=== PATIENT | male | born 1950 | race Caucasian/White ===

== ENCOUNTER → 2019-05-17 | Day surgery (SDC) | payer MEDICARE, BC ==
[2019-05-12 17:13] LABS: BASOPHILS # (AUTO) 0.1 (0.0-0.1); BASOPHILS % 1.3 % (0.0-1.0); EOSINOPHILS # (AUTO) 0.2 (0.0-0.4); EOSINOPHILS % 2.8 % (0.0-6.0); HEMATOCRIT 41.3 % (38.2-49.6); HEMOGLOBIN 13.7 g/dL (14.0-18.0); LYMPHOCYTES # (AUTO) 3.1 (1.0-3.2); LYMPHOCYTES % 36.3 % (18.0-39.1); MEAN CORPUSCULAR HEMOGLOBIN 30.7 pg (28-32); MEAN CORPUSCULAR HGB CONC 33.2 g/dL (31-35); MEAN CORPUSCULAR VOLUME 92.6 fL (81-99); MONOCYTES # (AUTO) 0.8 (0.2-0.8); MONOCYTES % 9.7 % (4.4-11.3); NEUTROPHILS # (AUTO) 4.2 (2.1-6.9); NEUTROPHILS % 49.7 % (38.7-80.0); PLATELET COUNT 313 x10e3/uL (140-360); RED BLOOD COUNT 4.46 x10e6/uL (4.3-5.7); RED CELL DISTRIBUTION WIDTH 13.4 % (11.7-14.4)
[~2019-05-17] MED LIST: BENICAR HCT 401 EAC1 PO; CEREFOLIN TABL1 EACH PO; CO Q-10200 MG PO; COLLAGEN PO; CRESTOR10 MG PO; FENTANYL CITRATE/PF 100MCG/2 ML INJ ONE; FISH OIL 1,2001 EAC1 PO; GARLIC1000 MG PO; GLUCOSAMINE CH1 EAC2 PO; LIDOCAINE HCL 2% LOCAL INJ 5 ML SDV VIAL INJ ONE; METFORMIN HCL500 MG PO; MULTIVITAMINS1 EAC7 PO; PROPOFOL IV EMULSION 10 MG/ML 20 ML VIAL ONE
--- OUTSIDE RECORDS SUMMARY | 2019-05-17 06:25 | XMS REPORT | Summary of Care ---
Author Author [facility] - Health Organization [facility] - Health Address Unknown Phone Unavailable Care Team Providers Care Board Attendant Name Role Phone Elliot Kilgore MD PCP Reason for Visit * Reason Comments Refill Request Encounter Details Care Team Description Date Type Department Elliot Kilgore MD [address] [place] [address] Refill Request 03/26/2019 Refill [facility], [facility] [address] [facility] 4th [place] [address] Allergies Comments Active Allergy Reactions Severity Noted Date House Dust Cough Medium 07/11/1965 documented as of this encounter (statuses as of 03/30/2019) Medications End Date Status Medication Sig Dispensed Refills Start Date Active omeprazole 20 mg 20 mg. 0 capsuleIndications: takes 8 20mg every other day Active GARLIC ORAL Take by 0 mouth daily. Active omega 1-pwb-uby-fish oil Take by 0 1,600-500-800 mg/5 mL mouth daily. Liqd Active Multivitamins with Take by 0 Fluoride (MULTI-VITAMIN mouth daily. ORAL) Active gluc/chondr-msm Take by 0 7/C/candida/boron mouth daily. (GLUCOSAMINE-CHONDR, BOSWELLIA, ORAL) Active COLLAGEN MISC daily. 0 Active CoQ10, Ubiquinol, 200 mg Take by 0 capsuleIndications: takes mouth daily. 400mg every other day Active TURMERIC ORAL Take by 0 mouth daily. Active ROSUVASTATIN 10 mg tablet TAKE 1 TABLET 90 tablet 0 BY MOUTH 9 DAILY Active tiZANidine 4 mg tablet Take 4 mg by 0 mouth every 8 (eight) hours as needed. Active MULTIVITAMIN ORAL Take 1 tablet 0 by mouth daily. Active metFORMIN 500 mg Take 1 tablet 180 tablet 1 04/05/201 tabletIndications: by mouth 2 9 Pre-diabetes (two) times daily with meals. Active olmesartan-hydrochlorothi Take 1 tablet 30 tablet 2 azide 40-25 mg per by mouth 9 tabletIndications: daily. Hypertensive heart disease without heart failure Active Lmefol Take 1 tablet 0 Cb-igoxdx-lkK60-algal 6 by mouth mg-600 mg- 2 mg-90.314 mg every other Tab day. 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 07/19/2018 Calcific tendinitis of shoulder 07/19/2018 Carpal tunnel syndrome 07/19/2018 Cervical radiculopathy 07/19/2018 Cervical spondylosis 07/19/2018 Osteoarthritis of shoulder region 07/19/2018 Disorder of bursae of shoulder region 07/19/2018 Enthesopathy of hip region 07/19/2018 Full thickness rotator cuff tear 07/19/2018 Lumbar radiculopathy 07/19/2018 Neck pain 07/19/2018 Trochanteric bursitis 07/19/2018 Hypertensive heart disease without heart failure 07/19/2018 Mixed hyperlipidemia 07/19/2018 documented as of this encounter (statuses as of 03/30/2019) Immunizations Name Administration Dates Next Due Pneumococcal 13 07/11/2017 Conjugate, PCV13 (Prevnar 13) Pneumococcal 04/16/2011 Polysaccharide, PPSV23 (PNEUMOVAX) Tdap 04/16/2011 Zoster(Zostavax)(Shingles 01/09/2012 ) documented as of this encounter Social History Date Tobacco Use Types Packs/Day Years Used Former Smoker Smokeless Tobacco: Never Used Comments: quit 1985 Drinks/Week oz/Week Comments Alcohol Use occaisonally Yes Sex Assigned at Date Recorded Not on file Industry Job Start Date Occupation Not on file Not on file Not on file Travel End Travel History Travel Start No recent travel history available. documented as of this encounter Last Filed Vital Signs Not on filedocumented in this encounter Plan of Treatment Care Team Description Date Type Specialty Harlan Cardoso MD [address] [place] [phone] 03/30/2019 Office Visit Neurology Health Maintenance Due Date Last Done Comments HEPATITIS C (HCV) SCREEN 1950 LUNG CANCER SCREEN: 2003 Recommended for age 55-80 with 30 + pack year history Zoster Recombinant 03/05/2012 01/09/2012 Vaccine (SHINGRIX) (2 of 3) Medicare Wellness Visit 2013 PNEUMOCOCCAL VACCINES 65+ 07/11/2018 07/11/2017, 04/16/2011 (2 of 2 - PPSV23) INFLUENZA VACCINE (#1) 2019 06/20/2018 DTaP,Tdap,and Td Vaccines 04/16/2021 04/16/2011 (2 - Td) COLONOSCOPY 03/11/2028 03/11/2018 documented as of this encounter Results Not on filedocumented in this encounter Insurance Type Payer Benefit Subscriber ID Effective Phone Address Plan / Dates Group Medicare MEDICARE MEDICARE xxxxxxxxxxx 2013- [phone] [address] Present [id number] [place] [address] Medicare Supplement [place] BCBS [id number] 2017-P [phone] [address] resent [id number] [place] [address] documented as of this encounter
--- OUTSIDE RECORDS SUMMARY | 2019-05-17 06:25 | XMS REPORT ---
Author Author [facility] Address Unknown Phone Unavailable Care Team Providers Care Transfer Agent Name Role Phone Unavailable Unavailable Problems This patient has no known problems. Allergies, Adverse Reactions, Alerts This patient has no known allergies or adverse reactions. Medications This patient has no known medications. Results Test Description Test Time Test Comments Text Results Atomic Results Result Comments SURGICAL SPECIMENS 2018-03-14 17:19:00 RUN DATE: 03/14/18 [facility] *LIVE* PAGE 1 RUN TIME: 1719 Specimen Inquiry RUN USER: INTERFACE PATIENT: JYA CONTRERAS LOC: [facility] U #: [id number] AGE/SX: 67/M ROOM: RE03/11/18REG DR: Cesar Zamarripa MD : 46 BED: DIS: STATUS: DEP [facility] TLOC: SPEC #: [id number] RECD: 03/11/18 STATUS: SERGIO GRECO #: [id number] AKSHAT: 03/11/[address]: Cesar Zamarripa MD ENTERED: 03/13/18 SP TYPE: SURG SPEC OTHR DR: Lisa Barrera MD ORDERED: GM LEVEL 4 CODES: [id number] - ESOPHAGUS, NOS [id number] - COLON, NOS COPIES TO: Cesar Zamarripa MD [address] [place] [address] Lisa Barrera MD [address] [place], [place] [address] PROCEDURES: GM LEVEL 4 (Incomplete) TISSUES: 1. ESOPHAGUS, NOS - Esophagus, GE junction, bx. 2. COLON, NOS - Colon, transverse, bx. 3. COLON, NOS - Colon, descending, bx. FINAL DIAGNOSIS Esophagus, GE junction, bx.: Acanthosis; chronic inflammation, changes consistent with reflux esophagitis. Colon, transverse, bx.: Mild chronic colitis. Colon, descending, bx.: No atypical cellular features. GROSS AND MICROSCOPIC GROSS EXAMINATION: Received is/are the specimen/s designated with the appropriate dimensions and block designation: 1. Esophagus, GE junction, bx.: 2 segments of pink-de oliveira tissue, measuring up to 0.4 cm. in greatest dimension each (A). 2. Colon, transverse, bx.: 4 segments of pink-de oliveira tissue, measuring up to 0.3 cm. in greatest dimension each (B). 3. Colon, descending, bx.: 2 segments of pink-de oliveira tissue, measuring up to CONTINUED ON NEXT PAGE RUN DATE: 03/14/18 [facility] *LIVE* PAGE 2 RUN TIME: 1719 Specimen Inquiry RUN USER: INTERFACE ---SPEC #: [id number] PATIENT: JAY CONTRERAS Chang #[id number] (Continued) GROSS AND MICROSCOPIC (Continued) 0.3 cm. in greatest dimension each (C). MICROSCOPIC EXAMINATION: Sections of the "Esophagus, GE junction, bx." reveal changes of acanthosis and chronic inflammation. These changes are consistent with reflux esophagitis. The Alcian blue/PAS stain does not show specialized intestinal metaplasia. No definite evidence of malignancy is identified. (When special stains have been reviewed, the appropriate positive/negative controls have been reviewed and are appropriately positive/negative). Sections of the "Colon, transverse, bx." reveal changes of mild chronic colitis. A mild chronic inflammatory infiltrate is seen in a slightly expanded lamina propria. No crypt arch itectural distortion is seen. No definite evidence of "microscopic colitis", inflammatory bowel disease or malignancy is identified. Sections of the "Colon, descending, bx." reveal changes of no atypical cellular features. POST-OP DIAGNOSIS EGD-distal esophagitis, diverticulosis PRE-OP DIAGNOSIS GERD, melena Signed SIGNATURE ON FILE Hawa Ortiz MD 03/14/18 1719 END OF REPORT
--- OUTSIDE RECORDS SUMMARY | 2019-05-17 06:25 | XMS REPORT | Summary of Care ---
Author Author [facility] - Health Organization [facility] - Health Address Unknown Phone Unavailable Care Team Providers Care Ordnance Artificer Helper Name Role Phone Elliot Kilgore MD PCP Reason for Visit * Reason Comments Refill Request Encounter Details Care Team Description Date Type Department Elliot Kilgore MD [address] [place] [address] Refill Request 03/25/2019 Telephone [facility] Adult [facility], [facility] [address] [facility] 4th [place] [address] Allergies Comments Active Allergy Reactions Severity Noted Date House Dust Cough Medium 07/11/1965 documented as of this encounter (statuses as of 03/25/2019) Medications End Date Status Medication Sig Dispensed Refills Start Date Active omeprazole 20 mg 20 mg. 0 capsuleIndications: takes 8 20mg every other day Active GARLIC ORAL Take by 0 mouth daily. Active omega 1-wub-udf-fish oil Take by 0 1,600-500-800 mg/5 mL [...] mg Take 1 tablet 180 tablet 1 tabletIndications: by mouth 2 9 Pre-diabetes (two) times daily with meals. Active olmesartan-hydrochlorothi Take 1 tablet 30 tablet 2 azide 40-25 mg per by mouth 9 tabletIndications: daily. Hypertensive heart disease without heart failure Active Lmefol Take 1 tablet 0 Lb-kvfxhq-dfM66-algal 6 by mouth mg-600 mg- 2 mg-90.314 mg every other Tab day. documented as of this encounter (statuses as of 03/25/2019) Active Problems Problem Noted Date Deficiency of [...] as of this encounter (statuses as of 03/25/2019) Immunizations Name Administration Dates Next Due Pneumococcal [...] Description Date Type Specialty Harlan Cardoso MD [address] [place] [phone] 03/30/2019 Office Visit Neurology Health Maintenance [...] Results Not on filedocumented in this encounter Visit Diagnoses Diagnosis Mixed hyperlipidemia - Primary documented in this encounter Insurance Type Payer Benefit Subscriber ID Effective Phone Address Plan / Dates Group Medicare MEDICARE MEDICARE xxxxxxxxxxx 2013- [phone] [address] Present [id number] [place] [address] Medicare Supplement [employer] [place] BCBS [id number] 2017-P [phone] [address] [facility] resent [id number] [place] [address] documented as of this encounter
--- OUTSIDE RECORDS SUMMARY | 2019-05-17 06:25 | XMS REPORT | Summary of Care ---
Author Author [facility] - Health Organization [facility] - Health Address Unknown Phone Unavailable Care Team Providers Care Instructional Technology Specialist Name Role Phone Elliot Kilgore MD PCP Encounter Details Care Team Description Date Type Department Doctor Unassigned, [place] [address] [place] [address] 03/30/2019 Orders Only [address] [address] Allergies Comments Active Allergy Reactions Severity Noted Date House Dust Cough Medium 07/11/1965 documented as of this encounter (statuses as of 04/04/2019) Medications End Date Status Medication Sig Dispensed Refills Start Date Active omeprazole 20 mg 20 mg. 0 capsuleIndications: takes 8 20mg every other day Active GARLIC ORAL Take by 0 mouth daily. Active omega 0-jfq-yyp-fish oil Take by 0 1,600-500-800 mg/5 mL [...] olmesartan-hydrochlorothi Take 1 tablet 30 tablet 2 07/03/201 azide 40-25 mg per by mouth 9 tabletIndications: daily. Hypertensive heart disease without heart failure Active Lmefol Take 1 tablet 0 Qx-lpbnrl-hdR86-algal 6 by mouth mg-600 mg- 2 mg-90.314 mg every other Tab day. documented as of this encounter (statuses as of 04/04/2019) Active Problems Problem Noted Date Deficiency of [...] as of this encounter (statuses as of 04/04/2019) Immunizations Name Administration Dates Next Due Pneumococcal [...] filedocumented in this encounter Plan of Treatment Health Maintenance Due Date Last Done Comments [...] 03/11/2028 03/11/2018 documented as of this encounter Procedures Comments Procedure Name Priority Date/Time Associated Diagnosis COGNITIVE ASSESSMENT Routine 03/30/2019 12:01 AM CDT documented in this encounter Results Not on filedocumented in this encounter Insurance Type Payer Benefit Subscriber ID Effective Phone Address Plan / Dates Group Medicare MEDICARE MEDICARE xxxxxxxxxxx 2013- [phone] [address] Present [id number] [place] [address] Medicare Supplement [employer] [place] BCBS [id number] 2017-P [phone] [id number] [place] [address] documented as of this encounter
--- OUTSIDE RECORDS SUMMARY | 2019-05-17 06:26 | XMS REPORT | Summary of Care ---
Author Author [facility] - Health Organization [facility] - Health Address Unknown Phone Unavailable Care Team Providers Care Solderer Torch Name Role Phone Elliot Kilgore MD PCP Reason for Visit * Reason Comments Follow-up 6 month repeat MOCA Encounter Details Care Team Description Date Type Department Harlan Cadroso MD [address] [place] [phone] Mild cognitive impairment with memory loss (Primary Dx) 03/30/2019 Office Visit [facility] Neurology-[address], [address] [place] [address] Allergies Comments Active Allergy Reactions Severity Noted Date House Dust Cough Medium 07/11/1965 documented as of this encounter (statuses as of 04/05/2019) Medications End Date Status Medication Sig Dispensed Refills Start Date Active omeprazole 20 mg 20 mg. 0 capsuleIndications: takes 8 20mg every other day Active GARLIC ORAL Take by 0 mouth daily. Active omega 9-zzo-mye-fish oil Take by 0 1,600-500-800 mg/5 mL [...] failure Active Lmefol Take 1 tablet 0 Zu-ilnslk-auA89-algal 6 by mouth mg-600 mg- 2 mg-90.314 mg every other Tab day. documented as of this encounter (statuses as of 04/05/2019) Active Problems Problem Noted Date Deficiency of [...] as of this encounter (statuses as of 04/05/2019) Immunizations Name Administration Dates Next Due Pneumococcal [...] of this encounter Last Filed Vital Signs Reading Time Taken Comments Vital Sign 113/69 03/30/2019 1:07 PM CDT Blood Pressure 66 03/30/2019 1:07 PM CDT Pulse 36.7 C (98 F) 03/30/2019 1:07 PM CDT Temperature 18 03/30/2019 1:07 PM CDT Respiratory Rate - - Oxygen Saturation - - Inhaled Oxygen Concentration 103.6 kg (228 lb 8 oz) 03/30/2019 1:07 PM CDT Weight 174.6 cm (5' 8.75") 03/30/2019 1:07 PM CDT Height 33.99 03/30/2019 1:07 PM CDT Body Mass Index documented in this encounter Progress Notes * Harlan Cardoso MD - 03/30/2019 10:20 AM CDT HISTORY OF PRESENT ILLNESS: 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 Chief complaint: Question of cognitive de boston, and also past history of headaches. History: The patient really isn't bothered with headaches at the present time, b ut there are still the issues related to his memory, particularly short term. He did say that sometimes he will have trouble as well [facility] PMH: has a past medical history of Hyperlipidemia, Hypertension, Prediabetes, and Sl eep apnea. Current Outpatient Medications: Lmefol Nl-yvlevv-ubA37-algal 6 mg-600 mg- 2 mg-90.314 mg Tab, Take 1 tablet by mouth every other day., Disp: , Rfl: olmesartan-hydrochlorothiazide 40-25 mg per tablet, Take 1 tablet by mouth daily., Disp: 30 tablet, Rfl: 2 metFORMIN 500 mg tablet, Take 1 tablet by mouth 2 (two) times daily with me als., Disp: 180 tablet, Rfl: 1 MULTIVITAMIN ORAL, Take 1 tablet by mouth daily., Disp: , Rfl: tiZANidine 4 mg tablet, Take 4 mg by mouth every 8 (eight) hours as needed. , Disp: , Rfl: ROSUVASTATIN 10 mg tablet, TAKE 1 TABLET BY MOUTH DAILY (Patient taking dif ferently: Take 5 mg by mouth daily.), Disp: 90 tablet, Rfl: 0 COLLAGEN MISC, daily., Disp: , Rfl: CoQ10, Ubiquinol, 200 mg capsule, Take by mouth daily., Disp: , Rfl: GARLIC ORAL, Take by mouth daily., Disp: , Rfl: gluc/chondr-msm 7/C/candida/boron (GLUCOSAMINE-CHONDR, BOSWELLIA, ORAL), Take by mouth daily., Disp: , Rfl: Multivitamins with Fluoride (MULTI-VITAMIN ORAL), Take by mouth daily., Di sp: , Rfl: omega 4-zoe-mox-fish oil 1,600-500-800 mg/5 mL Liqd, Take by mouth daily., Disp: , Rfl: TURMERIC ORAL, Take by mouth daily., Disp: , Rfl: omeprazole 20 mg capsule, 20 mg., Disp: , Rfl: Family History Problem Relation Age of Onset Cancer Mother Aneurysm Father Heart Father Diabetes Father Social History Socioeconomic History Marital status: Spouse name: Not on file Number of children: Not on file Years of education: Not on file Highest education level: Not on file Occupational History Not on file Social Needs Financial resource strain: Not on file Food insecurity: Worry: Not on file Inability: Not on file Transportation needs: Medical: Not on file Non-medical: Not on file Tobacco Use Smoking status: Former Smoker Smokeless tobacco: Never Used Tobacco comment: quit 1985 Substance and Sexual Activity Alcohol use: Yes Comment: occaisonally Drug use: No Sexual activity: Yes Partners: Female Lifestyle Physical activity: Days per week: Not on file Minutes per session: Not on file Stress: Not on file Relationships Social connections: Talks on phone: Not on file Gets together: Not on file Attends anglican service: Not on file Active member of club or organization: Not on file Attends meetings of clubs or organizations: Not on file Relationship status: Not on file Intimate partner violence: Fear of current or ex partner: Not on file Emotionally abused: Not on file Physically abused: Not on file Forced sexual activity: Not on file Other Topics Concern Not on file Social History Narrative Not on file Vital signs: BP 113/69 | Pulse 66 | Temp 36.7 C (98 F) (Oral) | Resp 18 | Ht 5' 8.75" (1.746 m) | Wt 228 lb 8 oz (103.6 kg) | BMI 33.99 kg/m General findings: EOMI/VFFTC/PERRL, no facial asymmetry, no new focal weakness o f arms, UE tone unchanged, no new focal weakness of legs, LE tone unchanged, no tremors, normal gait. MOCA Visuospatial/Executive(5):5 Naming(3): 3 Attention - Digits(2): 2 Attention - Letters(1): 1 Attention - Subtraction(3): 3 Language(2): 2 Fluency(1): 1 Abst raction(2): 2 Delayed Recall(5): 4 Orientation(6): 6 ASSESSMENT AND RECOMMENDATIONS: ICD-10-CM ICD-9-CM 1. Mild cognitive impairment with memory loss G31.84 331.83 780.93 Impression: I did talk to him about a metabolic scan, he wasn't really excited a bout doing that. Therefore we did do another MOCA, and he actually scored 29. Th ere is still the possibility that is distinct that he might have a mild cognitiv e impairment, but at this point, it doesn't appear that he is declining. I did t ell him that if he perceives a diminished function overall that we could then co nsider doing the metabolic scan or even giving him some empiric treatment with a cholinesterase inhibitor. I also did discuss the potential risks and benefits as well as mechanism of action of the cholinesterase inhibitors. This office visit did last 25 minutes, and greater than 13 minutes of the discussion was spent t alking about mild cognitive impairment as well as potential treatments and then the testing workup. Creation of the note was aided by utilizing a cut/paste operation of text from a Microsoft Word template created with [employer]. The text was dictated into the template via Dragon Naturally Speaking. documented in this encounter Plan of Treatment Health [...] filedocumented in this encounter Visit Diagnoses Diagnosis Mild cognitive impairment with memory loss - Primary Mild cognitive impairment, so stated documented in this encounter Insurance Type Payer Benefit Subscriber ID Effective Phone Address Plan / Dates Group Medicare MEDICARE MEDICARE xxxxxxxxxxx 2013- [phone] Present [id number] [place] [address] Medicare Supplement BCBS [facility] BCBS [id number] 2017-P [phone] [address] [facility] [id number] [place] [address] documented as of this encounter
--- OUTSIDE RECORDS SUMMARY | 2019-05-17 06:26 | XMS REPORT | Summary of Care ---
Author Author [facility] - Health Organization [facility] - Health Address Unknown Phone Unavailable Care Team Providers Care Nursing Tech Name Role Phone Elliot Kilgore MD PCP Reason for Visit * Reason Comments Follow-up 6 month repeat MOCA Encounter Details Care Team Description Date Type Department Harlan Cardoso MD [address] [place] [phone] Mild cognitive impairment with memory loss (Primary Dx) 03/30/2019 Office Visit [facility] Neurology-[address], [address] [place] [address] Allergies Comments Active Allergy Reactions Severity Noted Date House Dust Cough Medium 07/11/1965 documented as of this encounter (statuses as of 04/05/2019) Medications End Date Status Medication Sig Dispensed Refills Start Date Active omeprazole 20 mg 20 mg. 0 capsuleIndications: takes 8 20mg every other day Active GARLIC ORAL Take by 0 mouth daily. Active omega 6-hzw-myl-fish oil Take by 0 1,600-500-800 mg/5 mL [...] failure Active Lmefol Take 1 tablet 0 Hn-jmvhcu-ftI49-algal 6 by mouth mg-600 mg- 2 mg-90.314 [...] as well [facility] PMH: has a past medical history of Hyperlipidemia, Hypertension, Prediabetes, and Sl eep apnea. Current Outpatient Medications: Lmefol Pr-krahgk-fhO62-algal 6 mg-600 mg- 2 mg-90.314 mg Tab, [...] mouth daily., Di sp: , Rfl: omega 0-uha-epw-fish oil 1,600-500-800 mg/5 mL Liqd, Take by [...] file Gets together: Not on file Attends yazdanism service: Not on file Active member of [...] from a Microsoft Word template created with [employer]. The text was dictated into the template [...] Dates Group Medicare MEDICARE MEDICARE xxxxxxxxxxx 2013- [phone] [address] Present [id number] [place] [address] Medicare Supplement BCBS [facility] BCBS [id number] 2017-P [phone] [address] [facility] resent [id number] [place] [address] documented as of this encounter
[2019-05-17 10:00] VITALS: BP 112/75
--- NOTE | 2019-05-17 15:37 | Operative Report ---
DATE OF PROCEDURE: 05/17/2019 SURGEON: Cesar Zamarripa MD PREOPERATIVE DIAGNOSIS: History of Gary's esophagus. POSTOPERATIVE DIAGNOSES: 1. History of Gray's esophagus. 2. Distal esophagitis. PREOPERATIVE INDICATION: Assess for progression or evidence for Gary's esophagus. PROCEDURE: Esophagogastroduodenoscopy with distal esophageal biopsy (CPT 34162). ANESTHESIA: Moderate sedation with IV propofol. ASSISTANTS: None. FLUIDS: As per Anesthesia. ESTIMATED BLOOD LOSS: Minimal. DRAINS: None. COMPLICATIONS: None. SPECIMENS: Distal esophageal biopsy. GRAFTS: None. FINDINGS: Mild distal esophagitis at the GE junction. PROCEDURE IN DETAIL: The patient was brought to the endoscopy suite and was sedated with IV propofol. A preprocedure pause was performed. An adult-sized endoscope was introduced to the oropharynx and guided to the second portion of the duodenum. No gastric or duodenal abnormalities were noted. There was some mild distal esophagitis of the GE junction. Two biopsies were done using cold forceps and sent to Pathology. Prior to removing the endoscope, the stomach was desufflated. The patient tolerated the procedure well. Type of wound is type 1, clean. Cesar Zamarripa MD C/MODL /[id number]
== END | disposition home or self-care (01) ==
LOC: OR 06:19
PROVIDERS: ATTEND Surgery
DX: K22.70 Barrett's esophagus without dysplasia (principal); K21.0 Gastro-esophageal reflux disease with esophagitis; Z87.19 Personal history of other diseases of the digestive system; E11.9 Type 2 diabetes mellitus without complications; E78.00 Pure hypercholesterolemia, unspecified; G47.30 Sleep apnea, unspecified; G25.81 Restless legs syndrome; M19.90 Unspecified osteoarthritis, unspecified site; Z01.810 Encounter for preprocedural cardiovascular examination; Z01.812 Encounter for preprocedural laboratory examination; Z79.84 Long term (current) use of oral hypoglycemic drugs
CPT/HCPCS: 36415 ×2; 43239; 82948; 85025; 88305; 93005; J2001; J2704; J3010